=== PATIENT | male | born 1955 | race Caucasian/White ===

== ENCOUNTER → 2022-08-25 09:17 | Outpatient (CLI) | payer MEDICARE, OTHER, SELFPAY ==
--- NOTE | 2022-08-25 09:20 | DI.RAD.S_ITS ---
PROCEDURE: XR SHOULDER LT MIN 2V INDICATIONS: left shoulder pain TECHNIQUE: 3 views of the shoulder were acquired. COMPARISON: None. FINDINGS: Bones: There is bony irregularity of the inferior glenoid. Acromioclavicular joint space narrowing with associated osteophytosis. Soft tissues: No suspicious soft tissue calcifications. IMPRESSION: Bony irregularity of the inferior glenoid, likely osteophytosis in the setting of degenerative osteoarthritis. Moderate acromioclavicular osteoarthritis. Dictated by: Damian Busch M.D. on 08/25/2022 at 9:58 Approved by: Damian Busch M.D. on 08/25/2022 at 9:59
--- NOTE | 2022-08-25 09:20 | DI.RAD.S_ITS ---
PROCEDURE: XR LUMBAR SPINE 2-3V INDICATIONS: low back pain TECHNIQUE: 3 views of the lumbar spine were acquired. COMPARISON: None. FINDINGS: Bones: 5 [id number] vertebrae are present. There is normal bony alignment. No vertebral body compression fractures. No suspicious bony lesions. Moderate disc height loss at all levels. Extensive facet arthrosis, L4 through S1. Soft tissues: Overlying bowel gas pattern is normal. No suspicious soft tissue calcifications. IMPRESSION: Moderate disc height loss at all levels. Extensive facet arthrosis L4 through S1. Dictated by: Damian uBsch M.D. on 08/25/2022 at 9:59 Approved by: Damian Busch M.D. on 08/25/2022 at 10:00
== END ==
PROVIDERS: Family Provider Nurse Practitioner; PCP Family Medicine; Referring Provider Family Medicine; Visit Provider Family Medicine
DX: E78.5 Hyperlipidemia, unspecified (principal); I10 Essential (primary) hypertension; I27.20 Pulmonary hypertension, unspecified; M25.512 Pain in left shoulder; R73.9 Hyperglycemia, unspecified; M54.50 Low back pain, unspecified; M19.012 Primary osteoarthritis, left shoulder; M47.816 Spondylosis without myelopathy or radiculopathy, lumbar region
CPT/HCPCS: 72100; 73030

== ENCOUNTER → 2022-12-04 11:07 | Outpatient (CLI) | payer MEDICARE, OTHER, SELFPAY ==
--- NOTE | 2022-12-04 11:09 | DI.CT.S_ITS ---
PROCEDURE: CT LUNG LOW DOSE SCREENING INDICATIONS: screen lung cancer, eval known calcified lesions TECHNIQUE: Noncontrast 2.0-2.5 mm thick sections acquired from the pulmonary apices to the posterior costophrenic angles. 7 mm thick axial MIP, and 5 mm coronal and sagittal reformats were then acquired. A low radiation dose technique was utilized. COMPARISON: None. FINDINGS: Image quality: Diagnostic, given the low radiation dose technique. Lungs and pleura: Emphysematous changes are present at the base of the bilateral lower lobes. No suspicious pulmonary nodules or mass lesions. A 4 mm pulmonary nodule is present within the left upper lobe (series 3/image 85). A 5 mm pulmonary nodule is present within the left lower lobe (series 3/image 244). A 7 mm pulmonary nodule is present at the left lateral lower lobe (series 3/image 287). There are scattered calcified granulomas. Mediastinum: Heart size is normal. No pericardial effusion. No mediastinal adenopathy by size criteria. Thoracic aorta and central pulmonary arteries are normal in size. Scattered atheromatous calcifications are present within the aortic arch. Esophagus is normal in caliber. No hiatal hernia. Bones and chest wall: No suspicious bony lesions. No vertebral body compression fractures. No axillary or supraclavicular adenopathy by size criteria. Thyroid gland unremarkable.. Abdomen: Visualized upper abdomen solid organs and bowel loops appear normal in the absence of contrast. IMPRESSION: 1. 4-7 mm pulmonary nodules as above. No prior studies are available to determine the acuity of these findings. Six-month follow-up recommended to ensure stability/resolution. LUNG-RADS 3; probably benign; recommend 6 month follow-up CT. Dictated by: Lizet Rivera M.D. on 12/04/2022 at 14:01 Approved by: Lizet Rivera M.D. on 12/04/2022 at 14:12
== END ==
PROVIDERS: Family Provider Nurse Practitioner; PCP Family Medicine; Referring Provider Family Medicine; Visit Provider Family Medicine
DX: Z87.891 Personal history of nicotine dependence (principal); Z12.2 Encounter for screening for malignant neoplasm of respiratory organs; R91.8 Other nonspecific abnormal finding of lung field; J98.4 Other disorders of lung
CPT/HCPCS: 71271

== ENCOUNTER 2023-01-19 09:11 | Day surgery (SDC) | payer MEDICARE, OTHER, SELFPAY ==
[2023-01-18 09:23] VITALS: BMI 29.2
--- NOTE | 2023-01-19 | PATH_ITS ---
[facility] Accession Number: [id number] No. of containers..01 Tissue . 01 Material submitted: . back - LEFT SHOULDER BACK . 01 Clinical history: . CYST . 01 Diagnosis: Left Shoulder Back, Excision: Epidermal inclusion cyst, ruptured and inflamed. MRV 01/22/2023 1152 Local . 01 Electronically signed: . Corina Miller MD, Dermatopathologist NPI- [id number] . 01 Gross description: . Received in formalin, labeled with the patient's name and left shoulder back cyst, is a 6.8 x 2.5 cm excision of malcolm skin excised to a depth of 2.0 cm with a punctate lesion on the skin surface located 1.0 cm from the nearest peripheral margin and 3.1 cm from the nearest tip. The resection margin is inked blue. The punctate lesion extends into the subdermal soft tissue up to 1.2 cm in depth. The total irregular cavitary space covers a 1.2 x 1.2 x 0.6 cm area. Last Picker sections are submitted in A1-A3. ([id number]) /MRV 01/20/2023 1031 Local . 01 Pathologist provided ICD-10: L72.0 . 01 CPT . 657968 Specimen Comment: A courtesy copy of this report has been sent to [phone] Performed at: 01 [facility] [address] [place] [address], [place], [place] [id number] MD Stan Cleary MD Phone: [phone]
[2023-01-19 09:35] VITALS: BP 155/88; PULSE 77; RESP 16; TEMP 36.2; O2SAT 97; BMI 29.2
--- NOTE | 2023-01-19 10:33 | PM.PREOP ---
Pre-operative Note COVID-19 COVID-19 status: Not tested Interval Note History & Physical reviewed/Exam performed by Physician: Yes Changes to H&P: No ASA Class (for procedural sedation): II
--- NOTE | 2023-01-19 10:41 | SUR.OPER ---
Lateral on a morris bag, head on pillow, gel axillary roll in place, bottom leg bent with gel pad under knee to foot, upper leg straight and supported with pillows. Upper arm supported by pillows and secured over bottom arm to padded arm board. Safety belt at hip, tape over blanket lower legs.
[2023-01-19] MEDS: CEFAZOLIN 2 GM/100 ML PREMIX 100 ML IV (11:25)
[2023-01-19] MEDS: BUPIVACAINE 0.25% (PF) 30 ML, EPINEPHrine 0.15 MG INJ (11:46)
[2023-01-19 12:15] VITALS: BP 171/91; PULSE 70; RESP 17; TEMP 36.2; O2SAT 94
--- NOTE | 2023-01-19 12:20 | PM.OP.1 ---
Operative Date/Time/Diagnoses Date of procedure: 01/19/23 Time of procedure: 12:20 Pre-op diagnosis: Left upper back epidermal cyst Post-op diagnosis: same Procedure & Clinicians Procedure: Excisional biopsy of left upper back cyst Same procedure as scheduled: Yes Surgeon: Ming Sims Anesthesia Type: General Operative Notes Procedure in detail: The patient was brought to the operating room and general anesthesia was induced. The patient was then positioned in the right lateral decubitus position with the left side up. The left upper back was prepped and draped in the normal fashion and a time-out was performed. We made a 3 cm x 9 cm elliptical incision around the skin lesion and carried the dissection down to the fascia. The cyst was not entered. The specimen was resected en bloc. The left trapezius fascia was disrupted over 1 cm. Additional local was injected deep to the fascia and the fascial disruption was closed with 3 interrupted 3-0 Vicryl sutures. We then created small flaps to allow tension-free closure of the skin. The skin incision was then closed in layers using multiple interrupted 3-0 Vicryl dermal sutures followed by a running 4-0 Monocryl subcuticular stitch. Steri-Strips were applied along with a sterile dressing. EBL: 15 mL Specimen: Left upper back skin and subcutaneous adipose tissue including cyst Post-operative Condition: stable Disposition: PACU
[2023-01-19 12:21] VITALS: BP 142/91; PULSE 79; RESP 18; TEMP 36.2; O2SAT 94
[2023-01-19 12:27] VITALS: BP 129/82; PULSE 68; RESP 14; O2SAT 94
[2023-01-19 12:32] VITALS: BP 127/80; PULSE 75; RESP 13; TEMP 36.4; O2SAT 98
== END 2023-01-19 12:45 | disposition home or self-care (01) ==
PROVIDERS: Family Provider Nurse Practitioner; PCP Family Medicine; Referring Provider Surgery; Visit Provider Surgery
PROC: (CPT 11402; principal; 2023-01-19 10:45)
DX: L72.0 Epidermal cyst (principal)
CPT/HCPCS: 11402; 12034; J0171; J0690; J1100; J2250; J2405; J2704

== ENCOUNTER → 2023-05-12 16:21 | Outpatient (CLI) | payer MEDICARE, OTHER, SELFPAY ==
--- NOTE | 2023-05-12 | DI.MRI.S_ITS ---
PROCEDURE: MR SHOULDER LT WO CON INDICATIONS: LEFT SHOULDER PAIN TECHNIQUE: Noncontrast oblique coronal T2 fast spin echo with fat saturation, oblique sagittal T1 spin echo and T2 fast spin echo with fat saturation, axial T1 spin echo and T2 fast spin echo with fat saturation through the shoulder. COMPARISON: None. FINDINGS: Image quality: Excellent. Rotator cuff: Low to moderate grade articular and bursal surface partial thickness tear involving distal supraspinatus at its insertion on the humeral head is seen extending to musculotendinous junction. Low to moderate grade articular surface partial-thickness tear involving distal infraspinatus at its insertion on the humeral head is also noted. Low-grade intrasubstance partial-thickness tear involving distal subscapularis tendon is also seen. No full-thickness rotator cuff tendon rupture. Sagittal images demonstrate mild supraspinatus muscle atrophy. Bones and bursae: No bone marrow contusions or fractures. Moderate acromioclavicular joint osteoarthritic changes are seen with joint space narrowing and downward osteophyte formation depressing the musculotendinous junction of supraspinatus. Moderate joint effusion and subacromial subdeltoid bursal fluid is seen, no gross loose bodies. Capsule and soft tissues: Fraying of anterior inferior labrum with T2 hyperintense signal is seen concerning for subtle anterior inferior labral tear at 5 to 6 o'clock position. The long head of the biceps tendon demonstrates normal location and morphology. The rotator interval appears normal, without fibrosis. The coracohumeral ligament is normal in thickness. IMPRESSION: 1. Low to moderate grade articular and bursal surface partial thickness tear involving distal supraspinatus extending to musculotendinous junction. Low to moderate grade articular surface partial-thickness tear involving distal infraspinatus. Low-grade intrasubstance partial-thickness tear involving distal subscapularis. No full-thickness rotator cuff tendon rupture. Mild supraspinatus muscle atrophy. 2. Moderate acromioclavicular joint osteoarthritis. No fracture or dislocation. Moderate joint effusion and subacromial subdeltoid bursal fluid. No gross loose bodies. 3. Suggestion of subtle anterior inferior labral tear at 5 to 6 o'clock position. Dictated by: Raudel Avery M.D. on 05/12/2023 at 17:12 Approved by: Raudel Avery M.D. on 05/12/2023 at 17:18
== END ==
LOC: MRI 16:22
PROVIDERS: Family Provider Nurse Practitioner; PCP Family Medicine; Referring Provider Orthopaedic Surgery; Visit Provider Orthopaedic Surgery
DX: M75.112 Incomplete rotator cuff tear or rupture of left shoulder, not specified as traumatic (principal); M19.012 Primary osteoarthritis, left shoulder
CPT/HCPCS: 73221

== ENCOUNTER → 2023-05-19 10:41 | Outpatient (CLI) | payer MEDICARE, OTHER, SELFPAY | PROVIDERS: Family Provider Nurse Practitioner; PCP Family Medicine; Referring Provider Orthopaedic Surgery; Visit Provider Orthopaedic Surgery | DX: Z01.818 Encounter for other preprocedural examination (principal) | CPT/HCPCS: 93005; 93010 ==

== ENCOUNTER → 2023-07-30 09:33 | Outpatient (CLI) | payer MEDICARE, OTHER, SELFPAY ==
--- NOTE | 2023-07-30 09:34 | DI.CT.S_ITS ---
PROCEDURE: CT CHEST WO CON INDICATIONS: follow up on known nodules TECHNIQUE: Noncontrast 5 mm thick sections acquired from the pulmonary apices to the posterior costophrenic angles. 1 mm lung window, 5 mm thick coronal and sagittal and 7 mm axial MIP reformats were then acquired. For radiation dose reduction, the following was used: automated exposure control, adjustment of mA and/or kV according to patient size. COMPARISON: [facility], CT, CT LUNG LOW DOSE SCREENING, 12/04/2022, 11:20. FINDINGS: Image quality: Diagnostic. Lower Neck: No enlarged lymph nodes. Thyroid: No thyroid nodules which require sonographic follow up, per consensus guidelines. Axillae: No enlarged lymph nodes. Chest Wall: Unremarkable. Bones: Unremarkable. Lungs and Pleura: No pneumothorax or pleural effusions. Stable juxtapleural nodules with smooth margins in the left lower lobe; location and appearance favor benign intrapulmonary lymph nodes. Stable 4 mm solid nodule, left upper lobe (series 3, image 86). Moderate centrilobular emphysema and bronchial thickening. Stable calcified tree-in-bud nodules of the right lower lobe. Scattered calcified granuloma. Heart: Heart size is normal. No pericardial effusion. Thoracic Vessels: The aorta and pulmonary arteries demonstrate normal size. Mediastinum and Pia: No enlarged lymph nodes. Esophagus: No wall thickening. No hiatal hernia. Upper Abdomen: Calcified granuloma of the spleen and liver. Stable hypoattenuating lesion at the liver dome, presumably a small cyst. IMPRESSION: Stable solid pulmonary nodules. Lung-rads 2; continued annual follow-up if eligible. Sequela of granulomatous disease. Dictated by: Damian Busch M.D. on 07/30/2023 at 10:37 Approved by: Damian Busch M.D. on 07/30/2023 at 10:41
== END ==
PROVIDERS: Family Provider Nurse Practitioner; PCP Family Medicine; Referring Provider Family Medicine; Visit Provider Family Medicine
DX: R91.8 Other nonspecific abnormal finding of lung field; R93.89 Abnormal findings on diagnostic imaging of other specified body structures
CPT/HCPCS: 71250

== ENCOUNTER → 2023-12-21 06:42 | Outpatient (CLI) | payer MEDICARE, OTHER, SELFPAY ==
--- NOTE | 2023-12-21 06:45 | DI.ECHO.S_ITS ---
Version: 1 Study ID: [id number] [address] [place] [address] Name: CHICHI STANFORD Study Date: 12/21/2023, 6: 36 AM : 1955 BP: 140 / 87 mmHg Gender: Male Height: 71 in Age: 68 Years Weight: 214 lb BSA: 2.17 mA? Ordering: BEN FRANCO Referring: BEN FRANCO Clinician: Marek Schreiber Reason For Study: PULMONARY HYPERTENSION History: Summary Statements This is a technically challenging study characterized by limited endocardial visualization on apical views. Next time I recommend Definity echo contrast if possible. Parasternal views are good quality. Normal sinus rhythm. Normal LV size and mildly increased wall thickness. Normal wall motion and LV systolic function. Ejection fraction is 55-60%. Stage I diastolic dysfunction. Borderline dilated RV with normal RV systolic function. Estimated PA systolic pressure is 39 mm Hg assuming RA pressure of 10 mm Hg. IVC is not well visualized so can not definitively gauge RA pressure. Mildly dilated aortic root measuring 4 cm. No prior study available for comparison. Procedure: A two-dimensional transthoracic echocardiogram with color flow and Doppler was performed. The study quality was technically adequate. There is no prior echocardiogram noted for this patient. The patient was in sinus rhythm with heart rates between 68-86 bpm during the exam. Left Ventricle: The left ventricle is normal in size. Left ventricular wall thickness is mildly increased. The ejection fraction is estimated to be 55-60%. Right Ventricle: Borderline right ventricular enlargement. The right ventricular systolic function is normal. Atria: The left atrial size is normal. The right atrium is normal in size. The interatrial septum grossly appears intact with no obvious evidence for an atrial septal defect. Mitral Valve: The mitral valve is normal. There is no mitral valve stenosis. There is mild mitral regurgitation. Aortic Valve: The aortic valve is trileaflet. There is no aortic valve stenosis. No aortic regurgitation is present. Tricuspid Valve: The tricuspid valve is normal. There is no tricuspid stenosis. There is trace tricuspid regurgitation. Pulmonic Valve: The pulmonic valve is not well visualized. There is no pulmonic valvular stenosis. There is no pulmonic valvular regurgitation. Great Vessels: The aortic root is mildly dilated. The dimensions of the ascending aorta are normal. The inferior vena cava was not visualized. Pericardium/ Pleura: There is no pericardial effusion. There is no pleural effusion. 2D and M-Mode Measurements and Calculations LVIDd: 5.0 cm LVOT diam: 2.14 cm LVIDs: 3.9 cm Ao root diam: 4.0 cm IVSd: 1.15 cm asc Aorta Diam: 3.5 cm LVPWd: 1.11 cm LV estrada. diameter/BSA (cm/m^2): 2.28 LV sys. diameter/BSA (cm/m^2): 1.78 RVD1 (basal): 3.7 cm RVD2 (mid): 3.3 cm TAPSE: 2.30 cm LA A4 area: 17.3 healthcare architect? RA area: 17.2 healthcare architect? LA A2 area: 19.3 healthcare architect? RA long axis: 4.4 cm LA length (vol): 5.1 cm RA vol: 57.9 ml LA vol: 56.1 ml RA : 26.7 ml/mA? LA vol index: 25.9 ml/mA? Doppler Measurements and Calculations Ao V2 max: 142.0 cm/sec LVOT Max Brice: 106.1 cm/sec Ao V2 mean: 97.5 cm/sec LV V1 max P.5 mmHg Ao V2 VTI: 29.3 cm LV V1 VTI: 22.3 cm Ao max P.1 mmHg SV(LVOT): 80.4 ml Ao mean P.3 mmHg COURTNEY(I,D): 2.7 healthcare architect? COURTNEY(V,D): 2.7 healthcare architect? COURTNEY indexed to BSA (cm^2/m^2): 1.26 sev ratio: 0.76 MV E max brice: 78.9 cm/sec MV dec time: 0.20 sec MV A max brice: 99.7 cm/sec MV E/A: 0.79 Med Peak E' Brice: 6.8 cm/sec Lat Peak E' Brice: 10.8 cm/sec E/e' average: 9.4 TR max brice: 270.6 cm/sec PA mean P.5 mmHg TR max P.3 mmHg PA V2 max: 114.0 cm/sec Electronically signed by: Alexandra Hill M.D. 12/21/2023, 8: 23 AM
== END ==
LOC: ECHO 06:44
PROVIDERS: Family Provider Nurse Practitioner; PCP Family Medicine; Referring Provider Family Medicine; Visit Provider Family Medicine
DX: I27.20 Pulmonary hypertension, unspecified (principal); I34.0 Nonrheumatic mitral (valve) insufficiency; I77.810 Thoracic aortic ectasia
CPT/HCPCS: 93306